=== PATIENT | male | born 1975 ===

== ENCOUNTER → 2017-12-01 | Outpatient (CLI) | payer OTHER | LOC: EDSTATUS 09:45 → BMCLAB 09:45 → BMCIMAGING 09:46 | PROVIDERS: ATTEND Emergency Medicine | DX: S92.325D Nondisplaced fracture of second metatarsal bone, left foot, subsequent encounter for fracture with routine healing (principal); S92.335D Nondisplaced fracture of third metatarsal bone, left foot, subsequent encounter for fracture with routine healing ==

== ENCOUNTER → 2018-01-07 | Outpatient (CLI) | payer OTHER | LOC: BMCIMAGING 13:44 | PROVIDERS: ATTEND Podiatrist Foot & Ankle Surgery | DX: S92.322D Displaced fracture of second metatarsal bone, left foot, subsequent encounter for fracture with routine healing (principal); S92.335D Nondisplaced fracture of third metatarsal bone, left foot, subsequent encounter for fracture with routine healing ==